=== PATIENT | female | born 1945 | race Caucasian/White ===

== ENCOUNTER 2020-12-24 06:42 | Day surgery (SDC) | payer BC ==
[~2020-12-24] VITALS: Ht 162.6 cm; Wt 77.1 kg
--- NOTE | ~2020-12-24 | OP ---
PATIENT NAME: CAMACHO CREWS MEDICAL RECORD: [id number] :43 LOCATION:D.OPS ADMISSION DATE: SURGEON: JAIR CARROLL MD DATE OF OPERATION: 12/24/2020 PREOPERATIVE DIAGNOSES: 1. Umbilical hernia. 2. Hypertension. 3. Hypercholesterolemia. POSTOPERATIVE DIAGNOSES: 1. Umbilical hernia. 2. Hypertension. 3. Hypercholesterolemia. PROCEDURE: Umbilical hernia repair. SURGEON: Jair Carroll MD DESCRIPTION OF PROCEDURE: The patient's abdomen was prepped and draped in sterile fashion. A semicircular incision was made on the inferior aspect of the umbilicus. Electrocautery was used to dissect through the subcutaneous tissues and we elevated the umbilical stalk. We then encountered a small umbilical hernia defect. The hernia sac was transected down to the fascial edges. The greatest diameter, this was about 1 cm. We pushed the fatty contents back into the abdominal cavity and then reapproximated the fascial edges transversely with interrupted 0 Prolenes times 3. The wound was then irrigated out with normal saline. The umbilicus was tacked down to the fascia with a single interrupted 3-0 Vicryl. The subcutaneous tissues were reapproximated with interrupted 3-0 Vicryl. A 10 mL of 0.25% Marcaine with epinephrine was infused into the surrounding tissues and the skin incision was closed with running subcutaneous 5-0 Monocryl. COMPLICATIONS: None. CONDITION: Stable. ANESTHESIA: General endotracheal and local. BLOOD LOSS: Minimal. TRANSINT:[id number] Voice Confirmation ID: [id number] DOCUMENT ID: [id number] JAIR CARROLL MD CC: GERARDO CHI MD [id number] DICTATION DATE: 12/24/20922 DATABASE REPORT WRITER: 12/24/20946 [facility] [address] [id number]
[~2020-12-24 06:42] MED LIST: LEVOTHYROXINE100 MCG PO; TENORMIN50 MG PO; TRAZODONE HCL50 MG PO
[2020-12-24 07:36] LABS: BASOPHILS 1.2 % (0-2); EOSINOPHILS 3.2 % (0-7); HEMATOCRIT 39.6 % (36.0-48.0); HEMOGLOBIN 13.1 g/dL (12-16); IMMATURE GRANULOCYTES 0.4 % (0-5); LYMPHOCYTE ABS# 1.59 10x3/uL (1.18-3.74); LYMPHOCYTES 28.2 % (15-50); MCH 29.8 pg (26.0-34.0); MCHC 33.1 g/dL (31.0-37.0); MEAN PLATELET VOLUME 10.9 fL (7.4-10.4); MONOCYTES 12.2 % (2-11); NEUTROPHIL ABS# 3.09 10x3/uL (1.56-6.13); NEUTROPHILS 54.8 % (40-80); PLATELET COUNT 228 10x3/uL (130-400); RDW 12.6 % (11.5-14.5); WBC 5.6 10x3/uL (4.8-10.8)
[2020-12-24 07:39] LABS: CALC OSMOLALITY 285 mosm/kg (275-300); CALCIUM 9.3 mg/dL (8.5-10.1); CARBON DIOXIDE 27.9 mmol/L (21.0-32.0); CHLORIDE - SERUM 107 mmol/L (98-107); CREATININE - SERUM 0.6 mg/dL (0.6-1.3); GLUCOSE 98 mg/dL (74-106); POTASSIUM - SERUM 4.3 mmol/L (3.5-5.1); SODIUM 142 mmol/L (136-145); UREA NITROGEN 20 mg/dL (7-18); eGFR NON AFRICAN AMERICAN > 90 mL/min (90-120)
[2020-12-24 08:25] VITALS: BP 138/73; Ht 162.6 cm; Wt 77.1 kg
[2020-12-24] MEDS ORDERED: HYDROCODON-ACE1 EAC7 PO (09:20)
--- NOTE | 2020-12-24 10:01 | NUR ---
PT STATES 6/10 PAIN BUT STATES ITS PRESSURE. EDUCATED ON SURGERY AND PRESSURE PAIN DUE TO GAS
--- NOTE | 2020-12-24 11:51 | NUR ---
1150 PT MORE AWAKE AND EATING ICE CREAM. SECOND ATTEMPT TO WEAN OFF O2. FIRST TIME. O2 SAT AT 89%
--- NOTE | 2020-12-24 14:23 | NUR ---
1245 VOIDED IN BATHROOM. ABLE TO WALK WITH STANDBY ASSIST. 1305 IV REMOVED AND PRESSURE HELD. INSTRUCTIONS GIVEN
== END 2020-12-24 13:30 | disposition home or self-care (01) ==
LOC: D.OPS 06:42
PROVIDERS: Anesthesiology; ATTEND Surgery
DX: K42.9 Umbilical hernia without obstruction or gangrene (principal); I10 Essential (primary) hypertension; E78.00 Pure hypercholesterolemia, unspecified; K21.9 Gastro-esophageal reflux disease without esophagitis